=== PATIENT | female | born 1970 | race African-American/Black ===

== ENCOUNTER 2017-04-05 20:05 | Emergency (ER) | payer MEDICAID ==
[~2017-04-05 20:05] MED LIST: ATEN50TA; LISI-604; MEDR10TA11; POTA10TA69; SIMV20TA6
[2017-04-05 22:42] LABS: BASOPHILS % 1.1 % (0.0-2.0); EOSINOPHILS % 0.8 % (0.0-5.0); HEMATOCRIT. 39.3 % (36.0-48.0); HEMOGLOBIN. 12.9 g/dL (12.0-16.0); LYMPHOCYTES % 26.4 % (20.0-50.0); MEAN CORPUSCULAR HEMOGLOBIN 27.8 pg (28.0-32.0); MEAN CORPUSCULAR VOLUME 84.8 fL (81.0-99.0); MEAN PLATELET VOLUME 8.8 fl (7.4-10.4); MONOCYTES % 5.8 % (2.0-8.0); NEUTROPHILS % 65.9 % (40.0-76.0); PLATELET 224 x1000/uL (130-400); RED BLOOD CELL COUNT 4.64 mill/uL (4.2-5.4); RED CELL DISTRIBUTION WIDTH 14.3 % (11.6-14.6)
[2017-04-06 07:56] VITALS: BP 140/85
== END 2017-04-06 09:31 | disposition home or self-care (01) ==
LOC: ER 20:39
DX: I12.9 Hypertensive chronic kidney disease with stage 1 through stage 4 chronic kidney disease, or unspecified chronic kidney disease (principal); E11.22 Type 2 diabetes mellitus with diabetic chronic kidney disease; N18.9 Chronic kidney disease, unspecified; Z59.0 Homelessness; I51.7 Cardiomegaly; R42 Dizziness and giddiness; Z88.2 Allergy status to sulfonamides; E78.5 Hyperlipidemia, unspecified; Z60.9 Problem related to social environment, unspecified
CPT/HCPCS: 36415; 71010; 80048; 81025; 83880; 85025; 93005; 99285